=== PATIENT | female | born 1995 ===

== ENCOUNTER 2023-03-01 09:34 | Day surgery (SDC) | payer OTHER | END 2023-03-01 22:20 | disposition home or self-care (01) | LOC: CIR.AMB 09:34 | PROVIDERS: ATTEND Obstetrics & Gynecology | DX: N84.0 Polyp of corpus uteri (principal); Z88.0 Allergy status to penicillin; Z20.822 Contact with and (suspected) exposure to COVID-19; E16.1 Other hypoglycemia ==